=== PATIENT | female | born 2000 | race Caucasian/White ===

== ENCOUNTER → 2024-08-22 | Outpatient (CLI) | payer SELFPAY ==
--- NOTE | 2024-08-22 07:26 | US_ITS ---
STUDY: ABDOMINAL ULTRASOUND REASON FOR EXAM: Female, 24 years old. Gastro-esophageal reflux disease without esophagitis TECHNIQUE: Transabdominal ultrasound was performed with real-time and static grimm scale imaging. TECHNICAL QUALITY: Adequate. COMPARISON: None. FINDINGS: Liver: The liver measures 13.3 cm. There is normal echogenicity of the liver. The bile ducts are within normal limits. There is hepatic color flow. The direction of portal flow is hepatopetal. There is no demonstrated mass lesion. Portal vein measurement: Gallbladder: Normal distended gallbladder. The gallbladder wall measures 2 mm. There is a negative sonographic Castillo''s sign. There is no pericholecystic fluid. There are no gallstones. Common Bile Duct (C.B.D.): The common bile duct measures 2 mm. Pancreas: Normal size of the head, body and tail of the pancreas. There is normal echogenicity of the pancreas. There is no demonstrated pancreatic mass or cyst. Spleen: Normal size of the spleen. The spleen measures 9.9 cm. Right Kidney: Normal size of the right kidney. The right kidney measures 11.3 cm. Normal renal cortex. The right cortex measures 1.9 cm. There is no demonstrated renal mass or cyst. There is no right hydronephrosis. Left Kidney: Normal size of the left kidney. The left kidney measures 11.5 cm. Normal renal cortex. The left cortex measures 1.3 cm. There is no demonstrated renal mass or cyst. There is no left hydronephrosis. Aorta: No abdominal aortic aneurysm. I.V.C.: The IVC is patent. There is no ascites. US/Abdomen Complete IMPRESSION: Normal abdominal ultrasound examination. Electronically Signed: Elmer Guevara MD at 15:14 EST ,
== END | disposition home or self-care (01) ==
PROVIDERS: PCP Nurse Practitioner Family; Referring Provider Nurse Practitioner Family; Visit Provider Nurse Practitioner Family
DX: K21.9 Gastro-esophageal reflux disease without esophagitis (principal); R10.9 Unspecified abdominal pain; R68.81 Early satiety
CPT/HCPCS: 76700